=== PATIENT | female | born 1950 | race Caucasian/White ===

== ENCOUNTER 2016-09-05 14:29 | Emergency (ER) | payer SELFPAY ==
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
[2016-09-05 16:14] VITALS: BP 148/68
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
== END 2016-09-05 16:12 | disposition home or self-care (01) ==
LOC: ED 14:29
DX: S89.92XA Unspecified injury of left lower leg, initial encounter (principal); V49.9XXA Car occupant (driver) (passenger) injured in unspecified traffic accident, initial encounter; Y93.9 Activity, unspecified; Y99.9 Unspecified external cause status
CPT/HCPCS: 73562; 93971; 99283

== ENCOUNTER 2017-11-24 13:35 | Outpatient (CLI) | payer OTHER | END 2017-11-24 13:36 | LOC: POD 13:35 | PROVIDERS: ATTEND Podiatrist | DX: M72.2 Plantar fascial fibromatosis (principal) | CPT/HCPCS: 99213 ==

== ENCOUNTER 2017-12-18 12:51 | Outpatient (CLI) | payer OTHER | END 2017-12-18 12:56 | LOC: POD 12:51 | PROVIDERS: ATTEND Podiatrist | DX: M72.2 Plantar fascial fibromatosis (principal) | CPT/HCPCS: 20550; 99213 ==